=== PATIENT | male | born 1950 | race Caucasian/White ===

== ENCOUNTER 2023-11-08 13:08 | Outpatient (RCR) | payer MEDICARE, OTHER, SELFPAY | END 2023-11-08 23:59 | disposition home or self-care (01) | LOC: RPT 13:08 | PROVIDERS: ATTENDING PHYSICIAN Surgery; FAMILY PHYSICIAN Family Medicine | DX: K56.41 Fecal impaction (principal); M62.89 Other specified disorders of muscle; R35.1 Nocturia; Z73.6 Limitation of activities due to disability | CPT/HCPCS: 97530 ==